=== PATIENT | male | born 1950 | race Caucasian/White ===

== ENCOUNTER 2024-12-26 09:08 | Emergency (ER) | payer MEDICARE, SELFPAY ==
[2024-12-26 09:11] VITALS: BP 159/77; PULSE 52; RESP 18; TEMP 35.9; O2SAT 96; BMI 34.2
--- OUTSIDE RECORDS SUMMARY | 2024-12-26 09:11 | XMS_ITS | Clinical Summary ---
Author Organization [facility] Address [address] [place] [id number] Care Team Providers Care Workers Compensation Specialist Name Role Phone Elsewhere, Pcp Primary Care Provider Unavailabl e Source Comments Patient records contain information from all sites at [facility]. For routine questions regarding patient records, call [phone] during business hours, M-F 8:00 AM - 5:00 PM Central Time. Record requests for emergency care only can be directed to [phone] at any time.[facility] Immunizations Immunization Administration Dates Next Due Influenza TIV (IM) 05/16/2019 Influenza, Quadrivalent, Adj uvanted, Preservative Free 04/29/2021,06/20/2020 Influenza, Unspecified 04/15/2018 PCV13 08/12/2016 PPSV23 06/20/2020,08/15/2010 RZV (SHINGRIX) 04/13/2018,01/20/2018 SARS-COV-2 (COVID-19) - PFIZ ER (Discontinued)(12 years or older) 07/25/2021,01/04/2021,12/14/2020 SARS-COV-2 (COVID-19) - PFIZ ER BIVALENT TS(Discontinued)(12 YEARS OR OLDER) 04/15/2023 SARS-COV-2 (COVID-19) - PFIZ ER TS(Discontinued)(12 years or older) 12/02/2021 Tdap 08/16/2013 influenza trivalent high dose (HD)(PF) 8 influenza vaccine quad (FLUZ ONE/FLUARIX) (6 months and older)(PF) 04/15/2018 Social History Tobacco Use Types Packs/Day Years Used Date Smoking Tobacco: Never Assessed Nutrition Answer Date Recorded Nutrition: EVOO Fat Source Unknown 10/24 Nutrition: Servings of Fruits/Vegetables per Day Not on file 10/24/2020 Dental Answer Date Recorded Dental: Regular Dentist Unknown 10/25/19 21 Sex and Gender Information Value Date Recorded Sex Assigned at Not on file Legal Sex Male 4:35 PM [employer] Gender Identity Not on file Sexual Orientation Not on file Plan of Treatment Health Maintenance Due Date Last Done Comments Hepatitis C Screening 1950 DTaP,Tdap,and Td Vaccines (2 - Td or Tdap) 08/16/2023 08/16/2013 RSV vaccine - (32-36 weeks) or 60+ years (1 - 1-dose 75+ series) 12/13/2023 COVID-19 Vaccine (2023- season) 2024 06/26/2023, 04/15/2023, 06/04/2022, Additional history exists Influenza Vaccine (#1) 2024 , 06/04/2022, 04/29/2021, Additional history exists Depression Screening (Annual PHQ-2) 08/17/2024 Fall Risk Screen (Annual) 08/17/2024 Zoster Vaccines Completed 04/13/2018, 01/20/2018 Pneumococcal vaccine (50+ years) Completed 06/20/2020, 08/12/2016, 08/15/2010 Colonoscopy Discontinued 09/17/2020 Colorectal Cancer Screening Discontinued CT Colonography Discontinued Cologuard Discontinued FIT Discontinued IPV Vaccines Aged Out No longer eligi ble based on patient's age to complete this topic Insurance ARE Care Teams Workers Compensation Specialist Relationship Specialty Start Date End Date Elsewhere, Pcp PCP - General Family Medicine 12/14/20
--- OUTSIDE RECORDS SUMMARY | 2024-12-26 09:11 | XMS_ITS | Clinical Summary ---
Author Organization [facility] Address [address] [place] [id number] Care Team Providers [facility] Name Role Phone Johnson Mckeon MD Primary Care Provider [phone] Allergies Active Allergy Reactions Criticality Noted Date Comments Atorvastatin Myalgia 09/01/2019 Digoxin Other - Describe In Comment Field 02/03/2019 Chest congestion Lisinopril *Unknown 02/03/2019 Metoprolol Succinate Stomach Upset 07/28/2012 Medications calcium carbonate (OS-DAVE 500) 500 mg calcium (1,250 mg) tablet Take by mouth 2 times daily with meals. Active flaxseed 1,000 mg cap Take 1,000 mg by mouth 2 times daily. Active folic acid 1 mg tablet Take 1 mg by mouth once daily. Active Garlic cap Take 1 capsule by mouth once daily. Active glucosamine sulfate 500 mg tab Take 500 mg by mouth. Twice a day Active Magnesium 30 mg tablet Take 30 mg by mouth once daily. Active ascorbic acid, vitamin C, (VITAMIN C) 1,000 mg tablet Take 1,000 mg by mouth 2 times daily with meals. Active Ehxau-9-LQM-EPA-F sd Oil (FISH OIL) 1,000 mg (120 mg-180 mg) cap Take by mouth 2 times daily. 0 04/13/20 20 Active lancetsIndication s:Type II diabetes mellitus with complication (HC) Test 1 times per day. Dispense item covered by pt ins. 100 Each 3 07/28/20 23 Active insulin glargine, U-100, (Lantus Solostar U-100 Insulin) 100 unit/mL (3 mL) penIndications:Ty pe 2 diabetes mellitus treated with insulin (HC) Inject 12 units subcutaneous before bedtime. Product desired: LANTUS SOLOSTAR 15 mL 2 03/30/20 Active Additional Information Patient taking differently: 10 unitSubcutaneous BEFORE BEDTIME, Product desired: LANTUS SOLOSTAR, Reported on 12/13/2024 indomethacin (INDOCIN) 50 mg capsuleIndication s:Acute idiopathic gout of wrist, unspecified laterality Take 1 Capsule (50 mg) by mouth three times daily with meals. PRN Use for up to 3 days and then stop. 9 Capsule 03/30/20 Active glipiZIDE (GLUCOTROL) 10 mg tabletIndications :Type 2 diabetes mellitus without complication, without long-term current use of insulin (HC) Take 1 Tablet (10 mg) by mouth two times daily before meals. 180 Tablet 03/30/20 Active allopurinoL (ZYLOPRIM) 100 mg tabletIndications :Acute idiopathic gout of wrist, unspecified laterality Take 1 Tablet (100 mg) by mouth once daily. 90 Tablet 03/30/20 Active spironolactone (ALDACTONE) 25 mg tabletIndications :Essential hypertension Take 1 Tablet (25 mg) by mouth once daily. 90 Tablet 03/30/20 24 Active furosemide (LASIX) 40 mg tabletIndications :Essential hypertension Take 1 Tablet (40 mg) by mouth once daily in the morning. 90 Tablet 03/30/20 24 Active losartan (COZAAR) 50 mg tabletIndications :Essential hypertension Take 1 Tablet (50 mg) by mouth two times daily. 180 Tablet 03/30/20 Active rosuvastatin (CRESTOR) 10 mg tabletIndications :Other hyperlipidemia TAKE 1 TABLET BY MOUTH ON THURSDAY, THURSDAY AND THURSDAY EVENING 45 Tablet 03/30/20 24 Active metFORMIN (GLUCOPHAGE XR) 500 mg Extended-Release tabletIndications :Type 2 diabetes mellitus without complication, without long-term current use of insulin (HC) Take 2 Tablets (1,000 mg) by mouth two times daily. 360 Tablet 03/30/20 24 Active CPAPIndications:O SA (obstructive sleep apnea) CPAP machine for home use at pressure 15 cmw, full face mask x1/3month with a full face cushion x1/mo 1 Each 11 09/25/20 24 Active blood sugar diagnostic (OneTouch Ultra Test) stripIndications: Type II diabetes mellitus with complication (HC) TEST 1 TIME PER DAY. 100 Each 3 05/20/20 24 Active pen needle (BD Insulin Pen Needle UF) 31 gauge x 5/16 (disposable insulin pen needle)Indication s:Type 2 diabetes mellitus with diabetic neuropathy, with long-term current use of insulin (HC) 04/01/2023 This Rx replaces all other Rxs for this medication 100 Each 3 08/03/20 24 Active carvediloL (COREG) 6.25 mg tabletIndications :Essential hypertension Take 1 Tablet (6.25 mg) by mouth two times daily with meals. 180 Tablet 3 08/03/20 24 Active dabigatran (Pradaxa) 150 mg capsuleIndication s:Persistent atrial fibrillation (HC) Take 1 Capsule (150 mg) by mouth two times daily. 180 Capsule 3 10/14/19 25 Active dapagliflozin propanediol (FARXIGA) 10 mg tabletIndications :Type II diabetes mellitus with complication (HC) Take 1 Tablet (10 mg) by mouth once daily. 90 Tablet 3 10/19/19 25 Active Active Problems Problem Noted Date Diagnosed Date Diabetic ulcer of toe of rig ht foot associated with type 2 diabetes mellitus, limited to breakdown of skin 10/16/2024 HFrEF (heart failure with reduced ejection fract ion) 10/16/2024 Type 2 diabetes mellitus wit h diabetic neuropathy, with long-term current use of insulin 10/16/2024 Obesity (BMI 30-39.9) 03/31/2023 Skin cancer 03/17/2022 Overview (05/25/2023): 04/30/2023: Right Post-Auricular Ear, Ulcerated Squamous cell carcinoma in situ, Mohs done 05/25/[address] Epperson 02/24/23, Right postauricular posterior, squamous cell carcinoma in-situ, Excised 03/17/2023 02/24/23, Right postauricular anterior, squamous cell carcinoma in-situ, Excised 03/17/2023 03/13/2022 Right upper back, Invasive squamous cell carcinoma, Excised 03/27/22 Acquired absence of other right toe(s) Persistent atrial fibrillation 10/02/2021 Adenomatous colon polyp 09/19/2020 Overview (09/19/2020): Colonoscopy 09/2020 polyp, h/o advanced adenoma, repeat in 5 years CKD (chronic kidney disease) stage 3, GFR 30-59 ml/min 08/17/2020 Overview (12/02/2023): He is very sensitive to NSAIDS and was told to stay off them for life on 12/02/2023. Component Latest Ref Rng & Units 04/13/2020 06/18/2020 CREATININE 0.72 - 1.25 mg/dL 1.58 (H) BUN/CREAT RATIO 10 - 20 20 GFR if >60 ml/min/1.73m2 56 (L) 53 (L) GFR if not >60 ml/min/1.73m2 46 (L) 43 (L) Other hyperlipidemia 06/20/2020 Aneurysm of ascending aorta 02/03/2019 BLESSING 08/13/2003 AHI-33 02/03/2019 History of aortic valve replacement with tissue graft 02/03/2019 Type II diabetes mellitus with complication 01/15 Overview (02/05/2022): CKD (chronic kidney disease) stage 3, GFR 30-59 ml/min Prefers to have diabetic checks at least every 4 months. Essential hypertension 02/02/2019 Acute idiopathic gout of wrist 02/02/2019 Overview (01/30/2020): Allopurinol has worked well for him. He last took Indocin 3 years ago as of 01/30/2020. He reports he only uses 2 pills of the Indocin to treat his attacks. Resolved Problems Problem Noted Date Diagnosed Date Resolved Date Paroxysmal atrial fibrillation 02/03/2019 11/18/2019 Overview (06/20/2020): S/P ablation in 2009 and 2012. Cardioversion 12/30/18 and he has remained in sinus rhythm since then. As of 06/20/2020, his Criminal Judge Dr. Paz wants him to stay on Pradaxa indefinitely per [facility]. Encounters Date Type Department Care Team Description 12/16/2024 Telephone Level Prescription Assistance Program [employer] [id number] [place] [address] Radha Recio, PharmD [facility] 12/13/2024 11:15 AM CDT Office Visit [facility] [address] [place] [address] Johnson Mckeon MD Follow Up (Go over results that weren't available last week) 12/13/2024 Travel 12/07/2024 1:00 PM CDT Office Visit [facility] [address] [facility] [place] [address] Kurt Cheng DPM Follow Up (Diabetic foot check ) 12/07/2024 9:40 AM CDT Office Visit [facility] [address] [facility] [place] [address] Johnson Mckeon MD Diabetes (Routine follow up) 12/07/2024 Travel 11/29/2024 10:00 AM CDT Orders Only [facility] [address] [place] [address] Lab 11/29/2024 Orders Only [facility] Scanner 1 scan: (1-Ord) [facility], MULTIPLE LAB RESULTS, 11/29/2024 11/29/2024 Travel 11/29/2024 Telephone [facility] [address] [facility] [address] [place] [address] Jm Paz MD Results (Echocardiogram ) 11/01/2024 10:30 AM CDT Ancillary Procedure [facility] [address] [place] [address] 11/01/2024 Travel 10/21/2024 Telephone [facility] [address] [place] [address] Johnson Mckeon MD Follow Up 10/20/2024 11:00 AM [employer] Ancillary Procedure [facility] [address] [place] [address] 10/20/2024 Travel 10/19/2024 Telephone [facility] [address] [place] [address] Johnson Mckeon MD Prior Authorization (dapagliflozin propanediol (FARXIGA) 10 mg tablet DENIED) 10/18/2024 Telephone [facility] [address] [place] [address] Johnson Mckeon MD Prior Authorization (Farxiga) 10/17/2024 Telephone [facility] [address] [place] [address] Johnson Mckeon MD Medication Management 10/17/2024 Transcribe Orders [facility] [phone] Pravin Tapia MD 10/14/2024 2:00 PM [employer] Office Visit [facility] [address] [place] [address] Jm Paz MD CV Electrophysiology Est (Follow up. Echo recommended at 04/25/24 admission, but not ordered. Unsuccessfully attempted to complete prior to office visit.//PCP: Johnson Mckeon MD ) 10/12/2024 Orders Only [facility] [address] [place] [address] Jm Paz MD <No scans attached> from Last 3 Months Immunizations Immunization Administration Dates Next Due COVID-19 vaccine ([employer] 30mcg/0.3mL) 12YO+ BIVALENT NELLY TORRES 06/04/2022 Influenza Virus, Unspecified 04/15/2018 Influenza, High-dose Inactivated 04/15/2018 Influenza, Inactivated AIIV4 (Age 65+ Years) Preserv Free 06/26/2023,06/04/2022,04/29/2021,06/20 Influenza, Inactivated IIV3 (Age 65+ Years) Preserv Free 06/16/2024,05/16/2019 Pneumococcal Poly,23-Valent (Pneumovax) 06/20/2020,08/15/2010 Pneumococcal conj 13-Valent (Prevnar 13) 08/12/2016 RSV, Recombinant ADJ Reconst ituted (Arexvy 120MCG/0.5mL) 06/16/2024 Tdap 07/29/2023,08/16/2013 Zoster (Shingrix-RZV, recombinant) 04/13/2018, Family History Medical History Relation Name Comments Heart Disease Brother 1 Greg Kidney disease Brother 1 Greg Other Brother 1 Greg 1/2 brother Heart Disease Brother 2 Dagoberto of heart disease at 70 Other Brother 2 Dagoberto Agent orange Heart failure Father of this a t 82 Heart Disease Mother of heart disease and old age at 92 Stroke Mother Relation Name Status Comments Brother 1 Greg Alive Brother 2 Dagoberto Father Mother Sister 1 Alive Sister 2 Shira Alive Social History Tobacco Use Types Packs/Day Years Used Date Smoking Tobacco: Never Smokeless Tobacco: Never Tobacco Cessation:Counseling Given: Yes Comments:Cigar on [facility] Day Alcohol Use Standard Drinks/Week Comments Not Currently 0 (1 standard drink = 0.6 oz pur e alcohol) none currently as of 10/14/24 PHQ-2 Answer Date Recorded PHQ-2 TOTAL SCORE 0 03/30/2024 Social Connections Answer Date Recorded Do you often feel lonely or isolated from those around you? 0 03/30/2024 Alcohol Use Answer Date Recorded How often do you have a drink containing alcohol ? 4 08/03/2024 How many drinks containing a lcohol do you have on a typical day when you are drinking? 0 08/03/2024 How often do you have five or more drinks on one occasion? 0 08/03/2024 Financial Resource Strain Answer Date R ecorded Difficulty of Paying Living Expenses 3 03/30/2024 Difficulty of Paying Living Expenses Not on file 03/30/2024 Food Insecurity Answer Date Recorded Do you worry your food will run out before you are able to buy more? 1 03/30/2024 Transportation Needs Answer Date Record ed Does lack of transportation keep you from medica l appointments? 1 03/30/2024 Does lack of transportation keep you from work, meetings or getting things that you need? 1 03/30/2024 Housing Stability Answer Date Recorded What is your housing situation today? 1 03/30/2024 Interpersonal Safety Answer Date Record ed Are you being hit, kicked, p ushed or yelled at (see row info)? No 04/25/2024 Interpersonal Safety Abuse 12 - 18 Not on file 04/25/2024 Interpersonal Safety Ambulatory Vulnerability No t on file 04/25/2024 Utilities Answer Date Recorded Do you have trouble paying f or utilities (for example, heat, electricity, water, phone)? 1 03/30/2024 Sex and Gender Information Value Date Recorded Sex Assigned at Not on file Legal Sex Male 2:35 PM CDT Gender Identity Not on file Sexual Orientation Not on file Obstetrics History Last Filed Vital Signs Vital Sign Reading Time Taken Comments Blood Pressure 128/76 12/13/2024 12:06 PM CDT Pulse 51 12/13/2024 11:27 AM CDT Temperature 36.4 C (97.6 F) 12/13/2024 11:27 AM CDT Respiratory Rate 16 04/25/2024 12:15 PM CDT Oxygen Saturation 100% 12/13/2024 11:27 AM CDT Inhaled Oxygen Concentration - - Weight 114.8 kg (253 lb) 12/07/2024 10:49 AM CDT Height 179.1 cm (5' 10.5) 10/14/2024 2:03 PM CS T Body Mass Index 35.79 10/14/2024 2:03 PM [employer] Plan of Treatment Upcoming Encounters Date Type Department Care Team (Late st Contact Info) Description 01/17/2025 11:10 AM CDT Office Visit [facility] [address] [place], [place] [id number] Peace Kennedy MD [address] [place] [address] 03/31/2025 10:00 AM CDT Orders Only [facility] [address] [place] [address] Deepika Mora 04/05/2025 10:30 AM CDT Office Visit [facility] [address] [place] [address] Johnson Mckeon MD [address] [place] [address] 04/07/2025 11:30 AM CDT Office Visit [facility] [address] [place] [address] Jm Paz MD [address] [place] [address] 05/31/2025 10:00 AM CDT Office Visit [facility] [address] [place] [address] Kurt Cheng DPM [address] [place] [address] Health Maintenance Due Date Last Done Comments Depression screening for age 12+ 03/31/2025 03/31/2024, 03/31/2024, 03/30/2024, Additional history exists Medicare Wellness for age 65+ 03/31/2025 03/30/2024, 02/05/2022 BMI (ht and wt on same day) for age 18+ 10/14/2025 10/14/2024, 05/11/2024, 03/31/2024, Additional history exists Tetanus booster 07/29/2033 07/29/2023, 08/16/2013 Zoster (shingles) series for age 50+ Completed 04/13/2018, 01/20/2018 Hepatitis C screening for ag e 18-79 Completed 06/18/2020 Pneumococcal series for age 50+ Completed 06/20/2020, 08/12/2016, 08/15/2010 Tdap Completed 07/29/2023, 08/16/2013 Influenza Vaccine Completed 06/16/2024, , 06/04/2022, Additional history exists RSV vaccine for adults or Completed 06/16/2024 COVID-19 vaccine series Completed 11/29/19, 06/16/2024, 06/26/2023, Additional history exists Procedures Procedure Name Priority Date/Time Associated Diagnosis Comments LIPID PANEL W REFLEX MEASURED LDL Routine 12/07/2024 11:42 AM CDT Type II diabetes mellitus with complication (HC) URIC ACID Routine 12/07/2024 11:42 AM CDT Acute idiopathic gout of wrist, unspecified laterality HEMOGLOBIN A1C MONITORING (POCT) Routine 12/07/2024 11:41 AM CDT Type II diabetes mellitus with complication (HC) URINE ALBUMIN TO CREATININE RATIO, RANDOM Routine 11/29/2024 10:20 AM CDT Type 2 diabetes mellitus with diabetic neuropathy, with long-term current use of insulin (HC) SCAN-LABORATORY REPORT 11/29/2024 12:00 AM CDT US RENAL AND BLADDER COMPLETE Routine 11/01/2024 11:08 AM CDT Stage 3a chronic kidney disease (HC) ECHO TTE LIMITED WO CONTRAST W COLOR W LTD DOPPLER Routine 10/20/2024 11:56 AM [employer]ER Persistent atrial fibrillation (HC) EKG 12 LEAD Routine 10/14/2024 2:01 PM [employer] Persistent atrial fibrillation (HC) ANTI HCV Add On 06/18/2020 9:39 AM [employer]ER Need for hepatitis C screening test from Last 3 Months or Most Recently Relevant to Health Maintenance Results * (ABNORMAL) LIPID PANEL W REFLEX MEASURED LDL (12/07/2024 11:42 AM CDT) [facility] CHOLESTEROL, TOTAL 124 <200 mg/dL [facility] HDL CHOLESTEROL 36(L) > OR = 40 mg/dL [facility] TRIGLYCERIDES 113 <150 mg/dL [facility] LDL-CHOLESTEROL 68 mg/dL (calc) [facility] Comment: Reference range: <100 Desirable range <100 mg/dL for primary prevention; <70 mg/dL for patients with CHD or diabetic patients with > or = 2 CHD risk factors. LDL-C is now calculated using the Kennedy-Ledezma calculation, which is a validated novel method providing better accuracy than the Friedewald equation in the estimation of LDL-C. Kennedy CASTRO et al. WADE. 2013;310(19): 6911-5836 (http://education.StudyEgg/faq/BVS048) CHOL/HDLC RATIO 3.4 <5.0 (calc) [facility] NON HDL CHOLESTEROL 88 <130 mg/dL (calc) [facility] Comment: For patients with diabetes plus 1 major ASCVD risk factor, treating to a non-HDL-C goal of <100 mg/dL (LDL-C of <70 mg/dL) is considered a therapeutic option. Blood BLOOD SPECIMEN / Unknown 12/07/2024 11:42 AM CDT 12/07/2024 11:44 AM CDT Narrative [facility] - 12/08/2024 4:36 AM CDT FASTING:YES FASTING: YES us Johnson Mckeon MD CHEMISTRY Final Resu lt [facility] [address] [place] [address], [place] [phone] [facility] [address] [place] [address] * URIC ACID (12/07/2024 11:42 AM CDT) [facility] URIC ACID 4.6 4.0 - 8.0 mg/dL [facility] Comment: Therapeutic target for gout patients: <6.0 mg/dL Blood BLOOD SPECIMEN / Unknown 12/07/2024 11:42 AM CDT 12/07/2024 11:44 AM CDT Narrative [facility] - 12/08/2024 4:36 AM CDT FASTING:YES FASTING: YES us Johnson Mckeon MD CHEMISTRY Final Resu lt [facility] [address] [facility] [place] [address], [place] [phone] [facility] [address] [place] [address] * (ABNORMAL) HEMOGLOBIN A1C MONITORING (POCT) (12/07/2024 11:41 AM CDT) POC HEMOGLOBIN A1C 6.0(H) <6.0 % OF TOTAL HGB [facility] Comment: Any point of care results exhibiting inconsistency with the patient's clinical status should be repeated using a different testing method. Blood BLOOD SPECIMEN / Unknown 12/07/2024 11:41 AM CDT 12/07/2024 11:42 AM CDT us Johnson Mckeon MD CHEMISTRY Final Resu lt [facility] [address] [place] [address], [place] [phone] [facility] [address] [place] [address] * URINE ALBUMIN TO CREATININE RATIO, RANDOM (11/29/2024 10:20 AM CDT) ALB RAND URINE 17.5 mg/L 11/29/2024 2:22 PM CDT [facility] CREATININE,URIN E 0.97 g/L 11/29/2024 2:22 PM CDT [facility] ALBUMIN TO CREATININE RATIO,RAND UR 18.0 <30.0 mg/g creat 11/29/2024 2:22 PM CDT [facility] Urine URINE SPECIMEN / Unknown [facility] / Unknown 11/29/2024 10:20 AM CDT 11/29/2024 10:20 AM CDT Narrative [facility] - 11/29/2024 2:22 PM CDT If Albumin to Creatinine Ratio is elevated, consider the following: Elevations seen with incipient nephropathy associated with diabetes mellitus or hypertension. Stress, exercise,hematuria, and urinary tract infection may also produce elevated results. If clinically indicated, confirm with 24 Hour Albumin to Creatinine Ratio. us Johnson Mckeon MD URINE Final Resu lt [facility] [address] [place] [address], [place] * SCAN-LABORATORY REPORT (11/29/2024 12:00 AM CDT) us Scanner OTHER Final Result * US RENAL AND BLADDER COMPLETE (11/01/2024 11:08 AM CDT) Anatomical Region Laterality Modality Abdomen, AORTA, KIDNEYS Ultrasou nd 11/01/2024 11:4 6 AM CDT Impressions 11/01/2024 11:46 AM CDT Bilateral simple renal cysts. No hydronephrosis. Moderate postvoid residual bladder volume. Dictated by Corey Longo MD @ 11/01/2024 11:46:22 AM (Electronically Signed) Narrative 11/01/2024 11:46 AM CDT For Patients: As a result of the Cures Act, medical imaging exams and procedure reports are released immediately into your electronic medical record. You may view this report before your referring provider. If you have questions, please contact your health care provider. CLINICAL HISTORY: Stage 3a chronic kidney disease COMPARISON: none TECHNIQUE: Linn scale and color Doppler images were acquired of the kidneys and urinary bladder. FINDINGS: Bilateral simple renal cysts are present measuring 2.7 x 2.7 x 2.7 cm and 2.3 x 3.9 x 2.1 cm on the right and 2.0 x 2.0 x 1.6 cm on the left. No hydronephrosis or renal stone. The right kidney measures 11.7cm in length and the left kidney measures 11.5cm in length. The renal cortex appears of normal thickness. The urinary bladder appears normal. Prevoid bladder volume 204 cc. Postvoid bladder volume 100 cc. Residual volume 49 percent. Color Doppler images reveal a normal appearance of both ureteral jets. There is no evidence of bladder calculi or diverticula. Procedure Note Corey Longo MD - 11/01/2024 For Patients: As a result of the Cures Act, medical imagingexams and procedure reports are released immediately into your electronicmedical record. You may view this report before your referring provider.If you have questions, please contact your health care provider. CLINICAL HISTORY: Stage 3a chronic kidney disease COMPARISON: none TECHNIQUE: Linn scale and color Doppler images were acquired of the kidneys andurinary bladder. FINDINGS: Bilateral simple renal cysts are present measuring 2.7 x 2.7 x 2.7 cm and2.3 x 3.9 x 2.1 cm on the right and 2.0 x 2.0 x 1.6 cm on the left. Nohydronephrosis or renal stone. The right kidney measures 11.7cm in lengthand the left kidney measures 11.5cm in length. The renal cortex appears ofnormal thickness. The urinary bladder appears normal. Prevoid bladder volume 204 cc.Postvoid bladder volume 100 cc. Residual volume 49 percent. Color Dopplerimages reveal a normal appearance of both ureteral jets. There is noevidence of bladder calculi or diverticula. IMPRESSION: Bilateral simple renal cysts. No hydronephrosis. Moderate postvoidresidual bladder volume. Dictated by Corey Longo MD @ 11/01/2024 11:46:22 AM (Electronically Signed) us [place] Corey Tapia MD Final R esult * ECHO TTE LIMITED WO CONTRAST W COLOR W LTD DOPPLER (10/20/2024 11:56 AM [employer] CONTROLLER) AORTIC VALVE MEAN PG 14 mmHg PEAK TR VELOCITY 2.3 m/s LVEDD 5.2 cm EJECTION FRACTION 45 - 50% Anatomical Region Laterality Modality Ultrasound 10/20/2024 11:2 0 AM [employer]OLLER Narrative 10/20/2024 12:23 PM [employer]ER ECHOCARDIOGRAM PAGE WRIGHT : 1950 73 years Study Date: 10/20/2024 11:20:12 AM Gender: M BP: 131/63 mmHg Height: 178.00 cm BSA: 2.28 m Weight: 111.00 kg Tech: [facility] Referring MD: JM PAZ Site: [facility] Reading Location: Mobile OP Patient Location: Outpatient. Procedure: Limited 2D , Color Doppler and Limited Spectral Doppler. Indication for study: Persistent atrial fibrillation (HC) Cardiac Rhythm: Regular and with premature ventricular contractions.Study quality: Fair. Final Impressions: Limited Echocardiogram performed 1. Normal LV size, mildly increased wall thickness, low normal global systolic function with an estimated EF of 45 - 50%. 2. Mid septum segment, basal inferior segment, and basal septum segment are abnormal. 3. Right ventricular cavity size is moderately enlarged, global systolic RV function is mildly reduced. 4. The aortic valve is functioning size unknown [employer], no stenosis and trivial regurgitation.The aortic valve peak velocity is 2.4 m/s, the peak gradient is 22 mmHg, and the mean gradient is 14 mmHg. The aortic valve area is 1.69 cm with a dimensionless index of 0.35. The stroke volume index is 48.3 ml/m . 5. The mitral valve is sclerotic, trace mitral regurgitation. 6. Tricuspid valve is normal and mild tricuspid regurgitation. 7. No pericardial effusion. Chamber Sizes and Function Normal left ventricular size, mildly increased wall thickness, low normal global systolic function with an estimated EF of 45 - 50%. Right ventricular cavity size is moderately enlarged, global systolic RV function is mildly reduced. The mid septum segment, basal inferior segment, and basal septum segment are hypokinetic. Valves, RV Pressures and Diastolic Function The aortic valve is functioning size unknown [employer], no stenosis and trivial regurgitation. The mitral valve is sclerotic, trace mitral regurgitation. The tricuspid valve is normal in structure and mild tricuspid regurgitation. The tricuspid regurgitant velocity is 2.3 m/s, the estimated right ventricular systolic pressure is 21 mmHg plus right atrial pressure. Masses, Effusion, Shunts There is no pericardial effusion. MEASUREMENTS AND CALCULATIONS 2-D Measurements and LV Function: LVID (d) 5.2 cm LV FS% (2D) 25 % LVID (s) 3.9 cm LVOT diameter 2.5 cm IVS (d) 1.2 cm HR 72 bpm LVPW (d) 1.3 cm RV Basal Diam 5.3 cm Asc Ao 4.5 cm Aortic Valve: Vmax 2.4 m/s TIFFANIE (V) 1.72 cm VTI 0.65 m TIFFANIE (I) 1.69 cm LVOT V max 0.8 m/s Max PG 22 mmHg LVOT VTI 0.22 m Mean PG 14 mmHg SV 110 ml Dim Index 0.35 SV index 48 ml/m CO 7.9 l/min CI 3.5 l/min/m Tricuspid Valve and estimated PA pressures: TR Vmax 2.3 m/s TR maxG 21 mmHg . This study was interpreted by an [facility] accredited facility. Final Procedure Note Carmen Regalado, [facility] - 10/20/2024 ECHOCARDIOGRAM PAGE WRIGHT : 1950 73 years Study Date: 10/20/2024 11:20:12 AM Gender: M BP: 131/63 mmHg Height: 178.00 cm BSA: 2.28 m Weight: 111.00 kg Tech: [facility] Referring MD: JM PAZ Site: [facility] Reading Location: Mobile OP Patient Location: Outpatient. Procedure: Limited 2D , Color Doppler and Limited Spectral Doppler. Indication for study: Persistent atrial fibrillation (HC) Cardiac Rhythm: Regular and with premature ventricular contractions.Studyquality: Fair. Final Impressions: Limited Echocardiogram performed 1. Normal LV size, mildly increased wall thickness, low normal globalsystolic function with an estimated EF of 45 - 50%. 2. Mid septum segment, basal inferior segment, and basal septum segmentare abnormal. 3. Right ventricular cavity size is moderately enlarged, global systolicRV function is mildly reduced. 4. The aortic valve is functioning size unknown [employer],no stenosis and trivial regurgitation.The aortic valve peak velocity is2.4 m/s, the peak gradient is 22 mmHg, and the mean gradient is 14 mmHg.The aortic valve area is 1.69 cm with a dimensionless index of 0.35. Thestroke volume index is 48.3 ml/m . 5. The mitral valve is sclerotic, trace mitral regurgitation. 6. Tricuspid valve is normal and mild tricuspid regurgitation. 7. No pericardial effusion. Chamber Sizes and Function Normal left ventricular size, mildly increased wall thickness, low normalglobal systolic function with an estimated EF of 45 - 50%. Rightventricular cavity size is moderately enlarged, global systolic RVfunction is mildly reduced. The mid septum segment, basal inferiorsegment, and basal septum segment are hypokinetic. Valves, RV Pressures and Diastolic Function The aortic valve is functioning size unknown [employer], nostenosis and trivial regurgitation. The mitral valve is sclerotic, tracemitral regurgitation. The tricuspid valve is normal in structure and mildtricuspid regurgitation. The tricuspid regurgitant velocity is 2.3 m/s,the estimated right ventricular systolic pressure is 21 mmHg plus rightatrial pressure. Masses, Effusion, Shunts There is no pericardial effusion. MEASUREMENTS AND CALCULATIONS 2-D Measurements and LV Function: LVID (d) 5.2 cm LV FS% (2D) 25 % LVID (s) 3.9 cm LVOT diameter 2.5 cm IVS (d) 1.2 cm HR 72 bpm LVPW (d) 1.3 cm RV Basal Diam 5.3 cm Asc Ao 4.5 cm Aortic Valve: Vmax 2.4 m/s TIFFANIE (V) 1.72 cm VTI 0.65 m TIFFANIE (I) 1.69 cm LVOT V max 0.8 m/s Max PG 22 mmHg LVOT VTI 0.22 m Mean PG 14 mmHg SV 110 ml Dim Index 0.35 SV index 48 ml/m CO 7.9 l/min CI 3.5 l/min/m Tricuspid Valve and estimated PA pressures: TR Vmax 2.3 m/s TR maxG 21 mmHg . This study was interpreted by an [facility] accredited facility. Final Jm Paz MD ECHO ORD Final Result * EKG 12 LEAD (10/14/2024 2:01 PM [employer]) Interpretation Sinus rhythm with 1st degree A-V block with frequent Premature ventricular complexes from high LV Low voltage QRS Possible Inferior infarct , age undetermined Anteroseptal infarct , age undetermined Abnormal ECG Ventricular Rate 63 BPM Atrial Rate 63 BPM P-R Interval 274 ms QRS Duration 112 ms QT 426 ms QTc 435 ms P [place] 84 degrees R [place] 35 degrees T [place] 85 degrees 10/14/2024 2:01 PM [employer] 10/17/2024 11:47 PM [employer]ER Jm Paz MD EKG ORD Final Result * ANTI HCV (06/18/2020 9:39 AM [employer]ER) HEPATITIS C ANTIBODY Non-React eldon Non-React eldon 06/20/2020 12:00 PM [employer]ER [employer]OLLER [facility] Comment:Antibodies to HCV no t detected; does not exclude the possibility of exposure to HCV. Blood BLOOD SPECIMEN / Unknown Venipuncture / Unknown 06/18/2020 9:39 AM [employer]LLER 06/18/2020 9:39 AM [employer]ER us Johnson Mckeon MD SEND OUTS Final Resu lt [facility] [address] [place] [address], [place] from Last 3 Months or Most Recently Relevant to Health Maintenance Insurance MEDICARE PART A HB ONLY [facility] MEDICARE ADVANTAGE Advance Directives * Full Code (Latest Code Status on File) Date Activated Date Inactivated Comments 04/25/2024 11:23 AM 04/25/2024 3:18 PM Question Answer Comments Code Status Discussion: Reviewed Preferences * Full Code Date Activated Date Inactivated Comments 03/11/2021 6:51 AM 03/11/2021 11:38 AM Question Answer Comments Code Status Discussion: Discussed * Full Code Date Activated Date Inactivated Comments 12/30/2018 1:24 PM 12/30/2018 4:37 PM Care Teams [facility] Relationship Specialty Start Date End Date Johnson Mckeon MD [address] [place] [address] PCP - General Family Practice 03/09/19
[2024-12-26 10:02] LABS: Basophils Absolute Auto 0.03 K/uL (0.00-0.30); Basophils Percent Auto 0.4 % (0.0-3.0); Eosinophils Absolute Auto 0.23 K/uL (0.00-0.50); Eosinophils Percent Auto 3.3 % (0.0-7.0); Hematocrit 40.2 % (37.0-53.0); Hemoglobin* 13.4 gm/dL (13.5-17.5); Immature Granulocytes Abs Auto 0.03 K/uL (0.00-0.30); Immature Granulocytes Pct Auto 0.4 %; Lymphocytes Absolute Auto 1.55 K/uL (0.90-2.90); Lymphocytes Percent Auto 22.4 % (20-44); Mean Corpuscular HGB Conc 33 gm/dL (32-36); Mean Corpuscular Hemoglobin 31 pg (26-34); Mean Corpuscular Volume 94 fL (80-100); Monocytes Percent Auto 7.8 % (0.0-11.0); Neutrophils Absolute Auto 4.55 K/uL (1.7-7.0); Neutrophils Percent Auto 65.7 % (42.0-72.0); Platelet Count* 174 K/uL (140-440); RDW Coefficient of Variation % 12.6 % (11.5-15.5); White Blood Count* 6.93 K/uL (4.50-11.00)
[2024-12-26 10:05] LABS: Slide Review Reflex No
--- NOTE | 2024-12-26 10:15 | ED.GENADULT ---
HPI - General Adult General Date Seen: 12/26/24 Chief complaint: Unspecified Complaint, Adult Stated complaint: Scab on right hand- wants it checked out Time Seen by Provider: 12/26/24 09:26 Source: patient Mode of arrival: ambulatory Limitations: no limitations History of Present Illness HPI narrative: Patient is a 74-year-old male presenting to the emergency department for concerns of infection on the back of his right hand. He states 2 weeks of his dog accidentally bit him in the hand through the glove. He has been cleaning it with hydrogen peroxide. Over the last few days the notice some mild redness around the bite rivera but no redness going up the arm. Denies fevers, chills, weakness, lightheadedness chills she states he feels asymptomatic. Only reason he came in is because his told him to make sure it is not infected. No other concerns noted Related Data Home Medications ?Medication ?Instructions ?Recorded ?Confirmed allopurinol 100 mg tablet 100 mg PO DAILY 04/04/22 10/04/24 ascorbic acid (vitamin C) 1,000 mg 1,000 mg PO BID 04/04/22 10/04/24 tablet calcium 600 mg (as 1 tab PO BID 04/04/22 10/04/24 carbonate)-vitamin D3 10 mcg (400 unit) tablet carvedilol 12.5 mg tablet 12.5 mg PO BID 04/04/22 12/26/24 cyanocobalamin (vitamin B-12) 500 1,000 mcg PO DAILY 04/04/22 10/04/24 mcg tablet dabigatran etexilate 150 mg capsule 150 mg PO QDAY 04/04/22 10/04/24 dapagliflozin propanediol 5 mg 5 mg PO DAILY 04/04/22 10/04/24 tablet flaxseed oil 1,000 mg capsule 1 mg PO BID 04/04/22 10/04/24 folic acid 1 mg tablet 1 mg PO DAILY 04/04/22 10/04/24 furosemide 40 mg tablet mg PO DAILY 04/04/22 10/04/24 glipizide 10 mg tablet 10 mg PO BID 04/04/22 10/04/24 glucosamine sulfate 500 mg capsule 500 mg PO BID 04/04/22 10/04/24 indomethacin 50 mg capsule mg PO PRN 04/04/22 10/04/24 insulin glargine 100 unit/mL (3 unit subcut .Bedtime 04/04/22 10/04/24 mL) subcutaneous pen losartan 50 mg tablet 50 mg PO BID 04/04/22 10/04/24 magnesium oxide 400 mg (241.3 mg mg PO BID 04/04/22 10/04/24 magnesium) tablet melatonin 5 mg capsule 10 mg PO .Bedtime as needed PRN 04/04/22 10/04/24 spironolactone 25 mg tablet 25 mg PO DAILY 04/04/22 10/04/24 blood sugar diagnostic (OneTouch #10 ea 08/29/22 10/04/24 Ultra Test strips) pen needle, diabetic 31 gauge x #1,200 ea 08/29/22 10/04/2412/30 (BD Ultra-Fine Short Pen Needle) metformin 500 mg tablet,extended 1,000 mg PO BID 07/31/23 10/04/24 release 24 hr rosuvastatin 10 mg tablet 10 mg PO 07/31/23 10/04/24 lancets 30 gauge ([facility] ea 03/16/24 10/04/24 Plus Lancet) carvedilol 6.25 mg tablet 6.25 mg PO BID 12/26/24 12/26/24 Allergies Allergy/AdvReac Type Severity Reaction Status Date / Time atorvastatin Allergy Unknown Myalgias Verified 10/04/24 10:29 digoxin Allergy Unknown Verified 10/04/24 10:29 lisinopril Allergy Unknown Verified 10/04/24 10:29 metoprolol Allergy Unknown Verified 10/04/24 10:29 Review of Systems Status of ROS: Reports: 10 or more systems reviewed and unremarkable except as noted in History and below [facility] Medical History Encounter for screening laboratory testing for severe acute respiratory syndrome coronavirus 2 (SARS-CoV-2) ?Z20.822 - Contact with and (suspected) exposure to COVID-19 (ICD-10) Surgical History 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) ?Z89.419 - Acquired absence of unspecified great toe (ICD-10) Status post arthroscopy of right knee (10/15/20) ?Z98.890 - Other specified postprocedural states (ICD-10) 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 Moist mucous membranes. GI: Nontender/Nondistended, No rebound or guarding. MSK:Extremities w/o deformity, Normal Active ROM Skin: Abrasions noted on the back of right hand just below the 3rd and 4th MCP joints. Each 1 is about half a cm in diameter with some mild erythema around it. Cool to the touch Neuro: Normal Muscle tone, No focal neurological deficits. Psych: Awake, Alert, & Oriented x3. Appropriate mood and affect. Const: Vital Signs, click to edit/add: Vital Signs - 24 hr 12/26/24 09:11 Temperature 96.6 F L Pulse Rate [Pulse Oximeter] 52 L Respiratory Rate 18 Blood Pressure [Ri ght Upper Arm] 159/77 H Pulse Oximetry 96 Oxygen Delivery Me thod Room Air Course Vital Signs Vital signs: Initial Vital Signs Temperature 96.6 F L 12/26/24 09:11 Temperature Source Temporal Artery Scan 12/26/24 09:11 Pulse Rate 52 L 12/26/24 09:11 Respiratory Rate 18 12/26/24 09:11 Blood Pressure 159/77 H 12/26/24 09:11 Blood Pressure Mean 104 12/26/24 09:11 Blood Pressure Position Sitting 12/26/24 09:11 Pulse Oximetry 96 12/26/24 09:11 Oxygen Delivery Method Room Air 12/26/24 09:11 Vital Signs Temperature 96.6 F L 12/26/24 09:11 Pulse Rate 52 L 12/26/24 09:11 Respiratory Rate 18 12/26/24 09:11 Blood Pressure 159/77 H 12/26/24 09:11 Pulse Oximetry 96 12/26/24 09:11 Oxygen Delivery Method Room Air 12/26/24 09:11 Temperature 96.6 F L 12/26/24 09:11 Pulse Rate 52 L 12/26/24 09:11 Respiratory Rate 18 12/26/24 09:11 Blood Pressure 159/77 H 12/26/24 09:11 Pulse Oximetry 96 12/26/24 09:11 Oxygen Delivery Method Room Air 12/26/24 09:11 Medical Decision Making MDM Narrative Medical decision making narrative: Patient is a 74-year-old male presenting for concern of cellulitis to his hand. On my clinical exam I see no signs of infection. There is only a slight erythema around the area this is likely from the hydrogen peroxide. No streaking of erythema up the arm and there is no warmth. These bites occurred 2 weeks ago and it is unlikely that he will take this down for the infection the started off. Did do a CBC which shows no concerning abnormalities. He is doing well and will be discharged. He is agreeable to this plan Lab Data Labs: Lab Results 12/26/24 Range/Units 09:45 WBC 6.93 (4.50-11.00) K/uL RBC 4.30 (4.30-5.90) m/uL Hgb 13.4 L (13.5-17.5) gm/dL Hct 40.2 (37.0-53.0) % MCV 94 (80-100) fL MCH 31 (26-34) pg MCHC 33 (32-36) gm/dL RDW Coeff of Dontae 12.6 (11.5-15.5) % Plt Count 174 (140-440) K/uL Neut % (Auto) 65.7 (42.0-72.0) % Lymph % (Auto) 22.4 (20-44) % Lyman % (Auto) 7.8 (0.0-11.0) % Eos % (Auto) 3.3 (0.0-7.0) % Baso % (Auto) 0.4 (0.0-3.0) % Neut # (Auto) 4.55 (1.7-7.0) K/uL Lymph # (Auto) 1.55 (0.90-2.90) K/uL Lyman # (Auto) 0.50 (0.00-0.90) K/UL Eos # (Auto) 0.23 (0.00-0.50) K/uL Baso # (Auto) 0.03 (0.00-0.30) K/uL Abs Immat Gran (auto) 0.03 (0.00-0.30) K/uL Imm/Tot Granulo (auto) 0.4 % Discharge Plan Discharge Clinical Impression: Feared condition not demonstrated Patient Disposition: Home, Self-Care Condition: Stable Additional Instructions: There is no signs of infection at this time. The slight redness is just part of the normal healing process I recommend you stop used hydrogen peroxide. In the future if you get any cuts it is best to use water to wash it out as the hydrogen peroxide also destroys your good healthy tissue and can delay healing. If the redness starts going up the arm, becomes warm, or you develop any new or worsening symptoms return for re-evaluation Prescriptions: No Action furosemide 40 mg tablet PO DAILY glipizide 10 mg tablet 10 mg PO BID dapagliflozin propanediol 5 mg tablet 5 mg PO DAILY melatonin 5 mg capsule 10 mg PO .Bedtime as needed PRN insulin glargine 100 unit/mL (3 mL) insulin pen subcut .Bedtime calcium carbonate-vitamin D3 600 mg-10 mcg (400 unit) tablet 1 tab PO BID folic acid 1 mg tablet 1 mg PO DAILY glucosamine sulfate 500 mg capsule 500 mg PO BID indomethacin 50 mg capsule PO PRN cyanocobalamin (vitamin B-12) 500 mcg tablet 1,000 mcg PO DAILY magnesium oxide 400 mg (241.3 mg magnesium) tablet PO BID flaxseed oil 1,000 mg capsule 1 mg PO BID carvedilol 12.5 mg tablet 12.5 mg PO BID ascorbic acid (vitamin C) 1,000 mg tablet 1,000 mg PO BID allopurinol 100 mg tablet 100 mg PO DAILY losartan 50 mg tablet 50 mg PO BID dabigatran etexilate 150 mg capsule 150 mg PO QDAY spironolactone 25 mg tablet 25 mg PO DAILY metformin 500 mg tablet extended release 24 hr 1,000 mg PO BID rosuvastatin 10 mg tablet 10 mg PO Rx Instructions: , , Thursday (DME) lancets [OneTouch Delica Plus Lancet] 30 gauge misc See Rx Instructions .ROUTE DAILY Qty: 100 Rx Instructions: As directed (DME) pen needle, diabetic [BD Ultra-Fine Short Pen Needle] 31 gauge x 5/16 needle See Rx Instructions .ROUTE .MEDSUPPLY Qty: 1200 Patient Comments: DIRECTED FOR ADMINISTERING INSULIN AT HOME Rx Instructions: As directed (DME) OneTouch Ultra Test Strip See Rx Instructions .ROUTE .MEDSUPPLY Qty: 10 Patient Comments: USE TO TEST TWICE DAILY Rx Instructions: As directed carvedilol 6.25 mg tablet 6.25 mg PO BID Follow Up/Referrals: Johnson Mckeon MD [Primary Care Provider] - Stand Alone Forms: [employer] Info Instructions
--- OUTSIDE RECORDS SUMMARY | 2024-12-26 11:05 | XMS_ITS | Clinical Summary ---
Author Organization [facility] Address [address] [place] [id number] Care Team Providers Care Education Research Analyst Name Role Phone Elsewhere, Pcp Primary Care Provider Unavailabl e Source Comments Patient records contain information from all sites at [facility]. For routine questions regarding patient records, call [phone] during business hours, M-F 8:00 AM - 5:00 PM Central Time. 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
--- OUTSIDE RECORDS SUMMARY | 2024-12-26 11:05 | XMS_ITS | Clinical Summary ---
Author Organization [facility] Address [address] [place] [id number] Care Team Providers Care Product Development Assistant Name Role Phone Johnson Mckeon MD Primary Care Provider [phone] Allergies Active Allergy Reactions Criticality Noted Date [...] mouth 2 times daily with meals. Active Jklrn-0-LZL-EPA-F sd Oil (FISH OIL) 1,000 mg (120 [...] rhythm since then. 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 Paz wants him to stay on Pradaxa indefinitely per [facility]. Encounters Date Type Department Care Team Description 12/16/2024 Telephone [facility] [id number] [place] [address] Radha Recio, PharmD [facility]ication [facility]/) 12/13/2024 11:15 AM CDT Office Visit [facility] [address] [place] [address] Johnson Mckeon MD Follow Up (Go over results that weren't available last week) 12/13/2024 Travel 12/07/2024 1:00 PM CDT Office Visit [facility] [address] [place] [address] Kurt Cheng DPM Follow Up (Diabetic foot check ) 12/07/2024 9:40 AM CDT Office Visit [facility] [address] [place] [address] Johnson Mckeon MD Diabetes (Routine follow up) 12/07/2024 Travel 11/29/2024 10:00 AM CDT Orders Only [facility] [address] [place] [address] Lab 11/29/2024 Orders Only [facility] Scanner 1 scan: (1-Ord) [facility], MULTIPLE LAB RESULTS, 11/29/2024 11/29/2024 Travel 11/29/2024 Telephone [facility] [address] [facility] [address] [place] [address] Jm Paz MD Results (Echocardiogram ) 11/01/2024 10:30 AM CDT Ancillary Procedure [facility] [address] [place] [address] 11/01/2024 Travel 10/21/2024 Telephone [facility] [address] [place] [address] Johnson Mckeon MD Follow Up 10/20/2024 11:00 AM SUPPLY CHAIN ANALYST Ancillary Procedure [facility] [address] [place] [address] 10/20/2024 Travel 10/19/2024 Telephone [facility] [address] [place] [address] Johnson Mckeon MD Prior Authorization (dapagliflozin propanediol (FARXIGA) 10 mg tablet DENIED) 10/18/2024 Telephone [facility] [address] [place] [address] Johnson Mckeon MD Prior Authorization (Farxiga) 10/17/2024 Telephone [facility] [address] [place] [address] Johnson Mckeon MD Medication Management 10/17/2024 Transcribe Orders Customer [facility] [phone] Pravin Tapia MD 10/14/2024 2:00 PM SUPPLY CHAIN ANALYST Office Visit [facility] [address] [place] [address] Jm Paz MD CV Electrophysiology Est (Follow up. Echo recommended at 04/25/24 admission, but not ordered. Unsuccessfully attempted to complete prior to office visit.//PCP: Johnson Mckeon MD ) 10/12/2024 Orders Only [facility] [address] [place] [address] [place] [address] Jm Paz MD <No scans attached> from Last 3 Months Immunizations Immunization Administration Dates Next Due COVID-19 vaccine (Kizoom NT60mo 30mcg/0.3mL) 12YO+ BIVALENT NELLY TORRES 06/04/2022 Influenza [...] Body Mass Index 35.79 10/14/2024 2:03 PM SUPPLY CHAIN ANALYST Plan of Treatment Upcoming Encounters Date Type Department Care Team (Late st Contact Info) Description 01/17/2025 11:10 AM CDT Office Visit [facility] [address] [place], [place] [address] Peace Kennedy MD [address] [place] [address] 03/31/2025 10:00 AM CDT Orders Only [facility] [address] [place] [address] Deepika Mora 04/05/2025 10:30 AM CDT Office Visit [facility] [address] [place] [address] Johnson Mckeon MD [address] [place] [address] 04/07/2025 11:30 AM CDT Office Visit [facility] [address] [place] [address] [place] [phone] Jm Paz MD [address] [place] [address] 05/31/2025 10:00 AM CDT Office Visit [facility] [address] [place] [address] Kurt Cheng DPM [address] [place] [address] Health Maintenance Due Date Last Done Comments [...] W LTD DOPPLER Routine 10/20/2024 11:56 AM SUPPLY CHAIN ANALYST Persistent atrial fibrillation (HC) EKG 12 LEAD Routine 10/14/2024 2:01 PM SUPPLY CHAIN ANALYST Persistent atrial fibrillation (HC) ANTI HCV Add On 06/18/2020 9:39 AM SUPPLY CHAIN ANALYST Need for hepatitis C screening test from Last 3 Months or Most Recently Relevant to Health Maintenance Results * (ABNORMAL) LIPID PANEL W REFLEX MEASURED LDL (12/07/2024 11:42 AM CDT) [facility] CHOLESTEROL, TOTAL 124 <200 mg/dL [facility] LDL-C. [place] CASTRO et al. WADE. 2013;310(19): 1646-6486 (http://education.StemPath/faq/USF333) CHOL/HDLC RATIO 3.4 <5.0 (calc) [facility] [...] Johnson Mckeon MD CHEMISTRY Final Resu lt [facility] [address] [place] [address], [place] [phone] [facility] [address] [place] [address] * URIC ACID (12/07/2024 11:42 AM CDT) [facility] URIC ACID 4.6 4.0 - 8.0 mg/dL [facility] Comment: Therapeutic target for gout patients: <6.0 mg/dL Blood BLOOD SPECIMEN / Unknown 12/07/2024 11:42 AM CDT 12/07/2024 11:44 AM CDT Narrative [facility] - 12/08/2024 4:36 AM CDT FASTING:YES FASTING: YES us Johnson Mckeon MD CHEMISTRY Final Resu lt [facility] [address] [facility] [address], [place] [phone] [facility] [address] [place] [address] * (ABNORMAL) HEMOGLOBIN A1C MONITORING (POCT) (12/07/2024 11:41 AM CDT) POC HEMOGLOBIN A1C 6.0(H) <6.0 % OF TOTAL HGB [facility] Comment: Any point of care results exhibiting inconsistency with the patient's clinical status should be repeated using a different testing method. Blood BLOOD SPECIMEN / Unknown 12/07/2024 11:41 AM CDT 12/07/2024 11:42 AM CDT us Johnson Mckeon MD CHEMISTRY Final Resu lt [facility] [address] [place] [address], [place] [phone] [facility] [address] [place] [address] * URINE ALBUMIN TO CREATININE RATIO, RANDOM (11/29/2024 10:20 AM CDT) ALB RAND URINE 17.5 mg/L 11/29/2024 2:22 PM CDT [facility] CREATININE,URIN E 0.97 g/L 11/29/2024 2:22 PM CDT [facility] ALBUMIN TO CREATININE RATIO,RAND UR 18.0 <30.0 mg/g creat 11/29/2024 2:22 PM CDT [facility] Urine URINE SPECIMEN / Unknown [facility] / Unknown 11/29/2024 10:20 AM CDT 11/29/2024 10:20 AM CDT Narrative [facility] - 11/29/2024 2:22 PM CDT If Albumin to Creatinine Ratio is elevated, consider the following: Elevations seen with incipient nephropathy associated with diabetes mellitus or hypertension. Stress, exercise,hematuria, and urinary tract infection may also produce elevated results. If clinically indicated, confirm with 24 Hour Albumin to Creatinine Ratio. us Johnson Mckeon MD URINE Final Resu lt [facility] [address] [place] [address], [place] * SCAN-LABORATORY REPORT (11/29/2024 12:00 AM [...] @ 11/01/2024 11:46:22 AM (Electronically Signed) us [facility] Corey Tapia MD Final R esult * ECHO TTE LIMITED WO CONTRAST W COLOR W LTD DOPPLER (10/20/2024 11:56 AM SUPPLY CHAIN ANALYST) AORTIC VALVE MEAN PG 14 mmHg PEAK TR VELOCITY 2.3 m/s LVEDD 5.2 cm EJECTION FRACTION 45 - 50% Anatomical Region Laterality Modality Ultrasound 10/20/2024 11:2 0 AM SUPPLY CHAIN ANALYST Narrative 10/20/2024 12:23 PM SUPPLY CHAIN ANALYST ECHOCARDIOGRAM PAGE WRIGHT : 1950 73 years Study Date: 10/20/2024 11:20:12 AM Gender: M BP: 131/63 mmHg Height: 178.00 cm BSA: 2.28 m Weight: 111.00 kg Tech: [facility] Referring MD: JM PZA Site: [facility] Reading Location: Mobile OP Patient Location: [...] . This study was interpreted by an [facility] accredited facility. Final Procedure Note Carmen Regalado, [facility] - 10/20/2024 ECHOCARDIOGRAM PAGE WRIGHT : 1950 73 years Study Date: 10/20/2024 11:20:12 AM Gender: M BP: 131/63 mmHg Height: 178.00 cm BSA: 2.28 m Weight: 111.00 kg Tech: [facility] Referring MD: JM PAZ Site: [facility] Reading Location: Mobile OP Patient Location: [...] . This study was interpreted by an [facility] accredited facility. Final Jm Paz MD ECHO ORD Final Result * EKG 12 LEAD (10/14/2024 2:01 PM SUPPLY CHAIN ANALYST) Interpretation Sinus rhythm with 1st degree A-V block with frequent Premature ventricular complexes from high LV Low voltage QRS Possible Inferior infarct , age undetermined Anteroseptal infarct , age undetermined Abnormal ECG Ventricular Rate 63 BPM Atrial Rate 63 BPM P-R Interval 274 ms QRS Duration 112 ms QT 426 ms QTc 435 ms P [place] 84 degrees R [place] 35 degrees T [place] 85 degrees 10/14/2024 2:01 PM SUPPLY CHAIN ANALYST 10/17/2024 11:47 PM SUPPLY CHAIN ANALYST Jm Paz MD EKG ORD Final Result * ANTI HCV (06/18/2020 9:39 AM SUPPLY CHAIN ANALYST) HEPATITIS C ANTIBODY Non-React eldon Non-React eldon 06/20/2020 12:00 PM SUPPLY CHAIN ANALYST [facility] Comment:Antibodies to HCV no t detected; does not exclude the possibility of exposure to HCV. Blood BLOOD SPECIMEN / Unknown Venipuncture / Unknown 06/18/2020 9:39 AM SUPPLY CHAIN ANALYST 06/18/2020 9:39 AM SUPPLY CHAIN ANALYST us Johnson Mckeon MD SEND OUTS Final Resu lt [facility] [address] [place] [address], [place] from Last 3 Months or Most Recently Relevant to Health Maintenance Insurance MEDICARE PART A HB ONLY [facility] MEDICARE ADVANTAGE Advance Directives * Full Code [...] 1:24 PM 12/30/2018 4:37 PM Care Teams Product Development Assistant Relationship Specialty Start Date End Date Johnson Mckeon MD [address] [place] [address] PCP - General Family Practice 03/09/19
== END 2024-12-26 11:05 | disposition home or self-care (01) ==
LOC: ED 11:03
PROVIDERS: Emergency Provider Student in an Organized Health Care Education/Training Program; PCP Family Medicine
DX: M79.641 Pain in right hand (principal); Z71.1 Person with feared health complaint in whom no diagnosis is made
CPT/HCPCS: 36415; 85025; 99283